=== PATIENT | male | born 1950 | race Caucasian/White ===

== ENCOUNTER 2025-03-09 13:06 | Outpatient (CLI) | payer MEDICARE, OTHER ==
[~2025-03-09 13:06] MED LIST: GADOTERATE MEGLUMINE 7.5 MMOL/15 ML VIAL IV ONE
--- NOTE | 2025-03-09 14:27 | RADIOLOGY REPORT ---
EXAM: DI ORBITS COMPLETE CLINICAL INDICATION: MRI CLEARANCE TECHNIQUE: DI ORBITS COMPLETE Comparison: None FINDINGS/IMPRESSION: Dental amalgam is noted. Partially visualized cervical fixation hardware. No radiopaque foreign body is visualized. No evidence of acute traumatic fractures. The visualized paranasal sinuses and mastoids are clear.
--- NOTE | 2025-03-09 15:44 | RADIOLOGY REPORT ---
PROCEDURE: MR MRI ABDOMEN Indication: CYST OF KIDNEY, ACQUIRED COMPARISON: None TECHNIQUE: Multiplanar multisequence images of the abdomen were obtained without contrast. FINDINGS: Limited characterization without contrast. Within limitations: The kidneys demonstrate no hydronephro sis. Left renal lower pole cyst measuring 5.7 cm. There are other smaller subcentimeter bilateral re nal cysts. There is no hydronephrosis. Adrenal glands unremarkable. Spleen incompletely characterized on the axial sequences.. No T2 hyperi ntense lesions within the pancreas. Liver incompletely characterized on the axial sequences The imaged portion of the abdominal aorta is normal in caliber. IMPRESSION: Limited evaluation without contrast. Within limitations, no renal mass identified.. Left renal lower pole cyst measuring 5.7 cm. Other vyas bcentimeter cysts bilaterally.
[2025-03-10] MEDS ORDERED: GADOTERATE MEGLUMINE 7.5 MMOL/15 ML VIAL IV ONE (10:15)
== END 2025-03-09 23:59 | disposition home or self-care (01) ==
LOC: MRI 13:06
PROVIDERS: ATTEND General Practice
DX: N28.1 Cyst of kidney, acquired (principal); K08.89 Other specified disorders of teeth and supporting structures
CPT/HCPCS: 70200; 74183; A9575